=== PATIENT | male | born 1980 | race Caucasian/White ===

== ENCOUNTER 2018-03-23 23:37 | Emergency (ER) | payer SELFPAY ==
[~2018-03-23] VITALS: Ht 177.8 cm; Wt 104.5 kg
[2018-03-24] MEDS ORDERED: KETOROLAC10 MG PO (01:12)
[2018-03-24 01:35] VITALS: BP 141/94
== END 2018-03-24 01:35 | disposition home or self-care (01) ==
LOC: ED 23:37
DX: S83.412A Sprain of medial collateral ligament of left knee, initial encounter (principal); X50.1XXA Overexertion from prolonged static or awkward postures, initial encounter
CPT/HCPCS: J1885; L1830